=== PATIENT | female | born 1995 | race Two or more races ===

== ENCOUNTER 2017-12-31 08:30 | Outpatient (CLI) ==
[2016-01-10 23:08] VITALS: BMI 34.9
--- NOTE | 2017-12-31 10:12 | US ---
Exam: Ultrasound abdomen right upper quadrant FINDINGS: Liver parenchymal echogenicity normal. Patent antegrade portal vein. There is no ascites . There is a 1.6 x 1.0 cm vascularized nodule associated with gallbladder. No stones or sludge are seen. Common duct diameter of 0.5 cm is normal. Nonvisualization of the pancreas. Right kidney nesha ears normal. Impression: 1. Gallbladder nodule could represent large polyp or other benign etiology. Cannot exclude malignan t neoplasm. Surgical referral recommended. 2. No evidence of biliary obstruction
== END 2017-12-31 08:31 | disposition home or self-care (01) ==
LOC: RAD 08:30
PROVIDERS: ATTEND Family Medicine
DX: R10.11 Right upper quadrant pain (principal)

== ENCOUNTER 2018-08-04 09:22 | Emergency (ER) ==
[2018-08-04 09:27] VITALS: BP 130/86; TEMP 97.9; BMI 46.8
--- NOTE | 2018-08-04 09:41 | ED.PDOC ---
General ED Provider: Dr. TRI COLEY Chief Complaint: Abscess Stated Complaint: first time developed a perorectal abscess,nset probabluy 19 days but ctual discomfort 4 days.Abscess is deep sc located approx.4 cm from the reon ctum hour 09 inner surface of right gluteus. Time Seen by Physician: 09:30 Mode of Arrival: Walk-In Information Source: Patient Exam Limitations: No limitations Primary Care Provider: STANTON WHALEN Nursing and Triage Documentation Reviewed and Agree: Yes Does patient meet sepsis criteria?: No System Inflammatory Response Syndrome: Not Applicable Sepsis Protocol: For patient's 13 years and over: Temp is 96.8 and below OR 101 and greater Pulse >90 BPM Resp >20/minute Acutely Altered Mental Status Are patient's symptoms suggestive of a new infection, such as: -Pneumonia -Skin, Soft Tissue -Endocarditis -UTI -Bone, Joint Infection -Implantable Device -Acute Abdominal Infection -Wound Infection -Meningitis -Blood Stream Catheter Infection -Unknown Skin Complaint Exam - Skin/Soft Tissue Complaint/Exam Onset/Duration: 4 days plus prodrome Symptoms Are: Still present Timing: Constant Initial Severity: Moderate Current Severity: Mild Character: Reports: Redness, Swelling Aggravating: Reports: None Alleviating: Reports: Heat, Medications Associated Signs and Symptoms: Reports: Drainage Related Surgical History: Reports: None Recent Exposure to Others w/Similar Symptoms: No Skin Findings: Present: Erythema, Induration, Other Joint Tenderness Present: No Differential Diagnoses: Abscess, Cellulitis, Infection, Other Review of Systems - Review Of Systems Constitutional: Reports: No symptoms Eyes: Reports: No symptoms Ears, Nose, Mouth, Throat: Reports: No symptoms Respiratory: Reports: No symptoms Cardiac: Reports: No symptoms GI: Reports: No symptoms : Reports: No symptoms Musculoskeletal: Reports: No symptoms Skin: Reports: Change in color, Lumps, Other Neurological: Reports: No symptoms Endocrine: Reports: No symptoms Hematologic/Lymphatic: Reports: No symptoms All Other Systems: Reviewed and Negative Past Medical History - Past Medical History Previously Healthy: Yes Endocrine: Reports: None Cardiovascular: Reports: None Respiratory: Reports: None Hematological: Reports: None Gastrointestinal: Reports: None Genitourinary: Reports: None Neuro/Psych: Reports: None Musculoskeletal: Reports: None Cancer: Reports: None Last Menstrual Period: 12 days late - Surgical History General Surgical History: Reports: None - Family History Family History: Reports: Unknown - Social History Smoking Status: Never smoker Hx Substance Use: No Alcohol Screening: None Physical Exam - Physical Exam Appearance: Well-appearing Ill-appearing: None Pain Distress: Mild Eyes: YANY ENT: Ears normal Neck: Supple Respiratory: Airway patent Cardiovascular: RRR GI/: Soft Musculoskeletal: Normal strength Skin: Warm Neurological: Sensation intact Critical Care Note - Critical Care Note Total Time (mins): 0 Course - Course Orders, Labs, Meds: Lab Review 08/04/18 08/04/18 10:20 10:20 Serum , Qual Negative Urine Color Yellow Urine Clarity Cloudy Urine pH 6.0 Ur Specific [place] 1.025 Urine Protein Negative Urine Glucose (UA) Negative Urine Ketones Negative Urine Blood Negative Urine Nitrite Positive Urine Bilirubin Negative Urine Urobilinogen 1.0 Ur Leukocyte Esterase 1+ Urine Microscopic WBC 10-20 Ur Squamous Epith Cells 10-20 Amorphous Sediment 2+ Urine Bacteria 3+ Orders Category Date Time Status IV [ED IV/MEDIPORT/POWERPORT] .ONCE EMERGENCY 08/04/18 09:55 Active CULTURE WOUND [WOUND CULTURE] Stat LAB 08/04/18 10:10 Received SERUM Stat LAB 08/04/18 10:20 Completed URINALYSIS C & S IF INDICATED Stat LAB 08/04/18 10:20 Completed URINE CULTURE Stat LAB 08/04/18 10:20 Received 0.9 % Sodium Chloride [Saline Flush] MEDS 08/04/18 09:55 Active 1 syr IVF PRN PRN Acetaminophen [Tylenol] MEDS 08/04/18 09:59 Discontinued 650 mg PO ONCE STA Ceftriaxone Sodium [Rocephin] MEDS 08/04/18 10:18 Discontinued 500 mg .ROUTE .STK-MED ONE Ceftriaxone Sodium [Rocephin] 500 mg MEDS 08/04/18 09:56 Discontinued 0.9 % Sodium Chloride [Sodium Chloride] 50 ml IV ONCE Sodium Chloride 0.9% [Sodium Chloride] 1,000 ml MEDS 08/04/18 09:55 Discontinued IV BOLUS Medications Generic Name Dose Route Start Last Admin Trade Name Freq PRN Reason Stop Dose Admin Sodium Chloride 1 syr 08/04/18 09:55 08/04/18 10:32 Saline Flush IVF 1 syr PRN PRN Administration To flush IV Discontinued Medications Generic Name Dose Route Start Last Admin Trade Name Freq PRN Reason Stop Dose Admin Acetaminophen 650 mg 08/04/18 09:59 08/04/18 10:30 Tylenol PO 08/04/18 10:00 650 mg ONCE STA Administration Sodium Chloride 1,000 mls @ 1,000 mls/hr 08/04/18 09:55 08/04/18 10:31 Sodium Chloride IV 08/04/18 10:54 1,000 mls/hr BOLUS STA Administration Ceftriaxone Sodium 500 mg/ 50 mls @ 75 mls/hr 08/04/18 09:56 08/04/18 10:31 Sodium Chloride IV 08/04/18 10:35 75 mls/hr ONCE STA Administration Vital Signs: Temp Pulse Resp BP Pulse Ox 08/04/18 09:22 97.9 F 85 20 130/86 98 Departure - Departure Time of Disposition: 11:24 Disposition: HOME SELF-CARE Discharge Problem: Perirectal abscess Instructions: Warm Compress or Soak (ED) Condition: Good Pt referred to PMD for follow-up: Yes IPMP verified?: No Additional Instructions: Augmen 875 mg bid x 10 days .fLAGYL 500 TID X 7 DAYS Allergies/Adverse Reactions: Allergies No Known Allergies Allergy (Verified 08/04/18 09:27) Disposition Discussed With: Patient
[2018-08-04] MEDS ORDERED: SODIUM CHLORIDE 1,000 ML IV STA (09:55)
[2018-08-04] MEDS ORDERED: ROCEPHIN 500 MG in SODIUM CHLORIDE 50 ML IV STA (09:56)
[2018-08-04] MEDS ORDERED: TYLENOL PO STA (09:59)
[2018-08-04] MEDS ORDERED: ROCEPHIN ONE (10:18)
== END 2018-08-04 11:44 | disposition home or self-care (01) ==
LOC: ED 09:22
DX: K61.1 Rectal abscess (principal)
CPT/HCPCS: 36415; 81001; 84703; 87070; 87086; 87186; 96365; 99283

== ENCOUNTER 2018-10-27 14:55 | Outpatient (CLI) | END 2018-10-27 14:56 | disposition home or self-care (01) | LOC: RHC-LAB 14:55 → FCC-LAB 14:56 | PROVIDERS: ATTEND Family Medicine | DX: J02.9 Acute pharyngitis, unspecified (principal) | CPT/HCPCS: 87651 ==